=== PATIENT | male | born 1975 | race African-American/Black ===

== ENCOUNTER 2017-02-19 12:15 | Emergency (ER) | payer SELFPAY | END 2017-02-19 15:45 | disposition home or self-care (01) | LOC: CED 12:15 | DX: L02.212 Cutaneous abscess of back [any part, except buttock and flank] (principal); Z88.0 Allergy status to penicillin; F17.200 Nicotine dependence, unspecified, uncomplicated | CPT/HCPCS: 10060; 99283 ==